=== PATIENT | female | born 1990 | race African-American/Black ===

== ENCOUNTER 2016-07-24 01:42 | Emergency (ER) | payer OTHER ==
[~2016-07-24] VITALS: Ht 152.4 cm; Wt 72.5 kg
[2016-07-24 02:07] VITALS: Ht 152.4 cm; Wt 72.5 kg
[2016-07-24] MEDS ORDERED: BEN25 PO (03:28)
[2016-07-24] MEDS ORDERED: HC1C30 TOP (03:28)
--- NOTE | 2016-07-24 03:40 | ERD ---
ER Documentation Chief Complaint Date/Time DATE: 07/24/16 TIME: 03:37 Chief Complaint BITES AND RASHES ALL OVER BODY X 2 DAYS (ITCH & HURT) HPI 25-year-old female presents with multiple bite wounds across her arms abdomen and chest for the past 2 days. She states that she noticed it while she was at home. They are itching and slightly burning like. She has not had any new foods, medications, lotions or creams or shortness of breath associated. She states that she does have a pet at home however does not think it is from her pet as it is not having any symptoms. ROS All systems reviewed and are negative except as per history of present illness. Medications Home Meds Active Scripts Diphenhydramine Hcl* (Benadryl*) 25 Mg Cap, 25 MG PO Q6, #30 CAP Prov:MARIJA BAILEY PA-C 07/24/16 Hydrocortisone* Topical (Hydrocortisone* Topical) 1%-28.35 Gm Cream..g., 1 APPLIC TOP Q6 Y for ITCHING, #1 TUB Prov:MARIJA BAILEY PA-C 07/24/16 PMhx/Soc Medical and Surgical Hx: pt denies Medical Hx, pt denies Surgical Hx History of Surgery: No Anesthesia Reaction: No Hx Neurological Disorder: No Hx Respiratory Disorders: No Hx Cardiac Disorders: No Hx Psychiatric Problems: No Hx Miscellaneous Medical Probl: No Hx Alcohol Use: Yes Hx Substance Use: No Hx Tobacco Use: No Physical Exam Vitals Vital Signs Date Time Temp Pulse Resp B/P Pulse Ox O2 Delivery O2 Flow Rate FiO2 07/24/16 02:07 97.8 86 16 141/102 95 Physical Exam General: Well-developed, well-nourished. The patient appears in no acute distress. HEENT: Head is normocephalic, atraumatic. No scleral icterus. Neck: Supple. Nontender. Lungs: Clear to auscultation. Normal air movement. Heart: Regular rate and rhythm. S1 and S2 are normal. No murmurs, gallops, or rubs. Abdomen: Nondistended. Extremities: No clubbing or cyanosis. Moving extremities x 4. No weakness. Neurologic: Alert and oriented 3. No focal deficits. Normal speech and gait. Skin: Multiple insect bite wounds across arms abdomen trunk. Procedures/MDM 25-year-old female presents multiple insect bite/sting noted across arms and trunk for the past 2 days. They appear to be benign bites, there is no evidence of secondary cellulitis, abscess, viral illness, varus sella, shingles , or other infectious origin. Departure Diagnosis: Primary Impression: Insect bite Condition: Good Patient Instructions: Insect Bites and Stings Additional Instructions: Call your primary care doctor TOMORROW for an appointment during the next 1-2 days.See the doctor sooner or return here if your condition worsens before your appointment time. MARIJA BAILEY PA-C July 24, 2016 03:39
== END 2016-07-24 03:59 | disposition home or self-care (01) ==
LOC: FTE 01:42
DX: S40.862A Insect bite (nonvenomous) of left upper arm, initial encounter (principal); S40.861A Insect bite (nonvenomous) of right upper arm, initial encounter; S30.861A Insect bite (nonvenomous) of abdominal wall, initial encounter; S20.369A Insect bite (nonvenomous) of unspecified front wall of thorax, initial encounter; W57.XXXA Bitten or stung by nonvenomous insect and other nonvenomous arthropods, initial encounter; Y92.9 Unspecified place or not applicable
CPT/HCPCS: 99283